=== PATIENT | male | born 1980 | race African-American/Black ===

== ENCOUNTER 2022-03-06 18:34 | Emergency (ER) | payer OTHER | END 2022-03-06 20:45 | disposition home or self-care (01) | LOC: FER 18:34 | DX: S39.012A Strain of muscle, fascia and tendon of lower back, initial encounter (principal); S76.012A Strain of muscle, fascia and tendon of left hip, initial encounter; F17.200 Nicotine dependence, unspecified, uncomplicated; V49.40XA Driver injured in collision with unspecified motor vehicles in traffic accident, initial encounter; Z28.310 Unvaccinated for COVID-19 | CPT/HCPCS: 73502 ==